=== PATIENT | female | born 1950 | race Caucasian/White ===

== ENCOUNTER → 2018-04-06 | Outpatient (CLI) | payer MEDICARE | END | disposition home or self-care (01) | LOC: KCIC CT 12:58 | DX: J44.9 Chronic obstructive pulmonary disease, unspecified (principal); R91.1 Solitary pulmonary nodule | CPT/HCPCS: 71250 ==

== ENCOUNTER → 2018-05-19 | Day surgery (SDC) | payer MEDICARE ==
[~2018-05-19] MED LIST: EPINEPHrine 1 MG/ML VIAL; LIDOCAINE 1% Multi-Dose 50 ML VIAL.; LIDOCAINE 1% PF 2 ML VIAL. ID; MORPHINE SULFATE 2 MG/ML DISP.SYRIN. IV; ONDANSETRON PF 4 MG/2 ML VIAL. IV; PROCHLORPERAZINE 10 MG/2 ML VIAL. IV; PROPOFOL 20 ML IV; fentaNYL PF VIAL 100 MCG/2 ML VIAL IV
[2018-05-19 09:28] LABS: ADD MAN DIFF? NO
[2018-05-19 09:33] LABS: BASO # 0.1 x10^3/uL (0.0-0.2); BASO % 1 % (0-3); EOS # 0.2 x10^3/uL (0.0-0.7); EOS % 2 % (0-3); HEMATOCRIT 41.9 % (36.0-47.0); HEMOGLOBIN 14.5 g/dL (12.0-15.5); LYMPH % 28 % (24-48); MEAN CORPUSCULAR HEMOGLOBIN 33 pg (25-35); MEAN CORPUSCULAR HGB CONC 35 g/dL (31-37); MEAN CORPUSCULAR VOLUME 95 fL (79-100); MONO # 0.5 x10^3/uL (0.0-1.1); MONO % 6 % (0-9); NEUT # 4.5 x10^3uL (1.8-7.7); NEUT % 63 % (31-73); PLATELET COUNT 238 x10^3/uL (140-400); RED BLOOD COUNT 4.39 x10^6/uL (3.50-5.40); RED CELL DISTRIBUTION WIDTH 12.8 % (11.5-14.5); WHITE BLOOD COUNT 7.2 x10^3/uL (4.0-11.0)
[2018-05-19] MEDS: ALBUTEROL SULFATE 2.5 MG/3 ML NEBU. IH (09:41)
[2018-05-19 09:43] LABS: PROTHROMBIN TIME PATIENT 12.3 SEC (11.7-14.0)
[2018-05-19] MEDS: IV RINGERS,LACTATED 1000ML 1,000 ML IV (09:44)
== END | disposition home or self-care (01) ==
LOC: SURG 08:58
DX: R91.8 Other nonspecific abnormal finding of lung field (principal); I10 Essential (primary) hypertension; J43.9 Emphysema, unspecified; Z90.49 Acquired absence of other specified parts of digestive tract; Z98.51 Tubal ligation status; Z98.890 Other specified postprocedural states; Z79.01 Long term (current) use of anticoagulants; F17.210 Nicotine dependence, cigarettes, uncomplicated; Z80.1 Family history of malignant neoplasm of trachea, bronchus and lung; Z82.49 Family history of ischemic heart disease and other diseases of the circulatory system
CPT/HCPCS: 31622; 31624; 31625; 36415; 85025; 85610; 87070; 87102; 87116; 87205; 88112; 94640; J0171; J2704; J7613

== ENCOUNTER → 2018-05-23 | Outpatient (CLI) | payer MEDICARE | END | disposition home or self-care (01) | LOC: KCIC US 08:53 | DX: R19.05 Periumbilic swelling, mass or lump (principal); R19.07 Generalized intra-abdominal and pelvic swelling, mass and lump | CPT/HCPCS: 76705 ==

== ENCOUNTER → 2018-06-16 | Outpatient (CLI) | payer MEDICARE ==
[2018-05-19 11:07] VITALS: BP 164/73
[~2018-06-16] MED LIST changes: -EPINEPHrine 1 MG/ML VIAL; -LIDOCAINE 1% Multi-Dose 50 ML VIAL.; -LIDOCAINE 1% PF 2 ML VIAL. ID; +LOSA25TA4 PO; -MORPHINE SULFATE 2 MG/ML DISP.SYRIN. IV; -ONDANSETRON PF 4 MG/2 ML VIAL. IV; +PROAIR HFA8.5 GM INH; -PROCHLORPERAZINE 10 MG/2 ML VIAL. IV; -PROPOFOL 20 ML IV; -fentaNYL PF VIAL 100 MCG/2 ML VIAL IV
--- NOTE | 2018-06-16 16:22 | RAD ---
CLINICAL HISTORY: Lung cancer INDICATION: Initial evaluation. COMPARISON: CT chest 04/06/2018 TECHNIQUE: Radiopharmaceutical Dose: 13 mCi F-18 FDG intravenous Blood glucose at time of study: 124 Images were obtained from the mid head to the mid thighs. A low dose, noncontrast CT study was performed for the purpose of attenuation correction and anatomic localization. FINDINGS: Head and Neck: No abnormal metabolic activity is seen within the head or neck. Chest: Within the left apex, in a region of patchy and reticular nodular opacities, SUV max measures 2.7. In the left suprahilar region there is an area of nodular prominence within SUV max of 9.8. This may represent a hilar lymph node or mass, not well delineated by noncontrast exams. Although comparison to prior CT is limited, this is stable to mildly more prominent morphologically. Abdomen and Pelvis: Physiologic GI and activity. The right kidney is small. Skeletal: No suspicious osseous metabolic activity is seen. IMPRESSION: 1. Left suprahilar fullness with increased metabolic activity with SUVmax measuring 9.8. This area was not well delineated on prior noncontrast CT. Given the increased metabolic activity and suspicion for lung cancer, this can be further assessed by bronchoscopy and possibly endobronchial biopsy. 2. Additional lung nodules, likely below threshold for evaluation by PET. 3. Patchy reticular nodular opacities in the left lung apex, with mild, near physiologic SUV max, possibly postinfectious.
== END | disposition home or self-care (01) ==
LOC: PETSC 11:01
PROVIDERS: ATTEND Radiology Radiation Oncology
DX: C34.92 Malignant neoplasm of unspecified part of left bronchus or lung (principal); I10 Essential (primary) hypertension; J44.9 Chronic obstructive pulmonary disease, unspecified; Z87.891 Personal history of nicotine dependence
CPT/HCPCS: 78815; A9552

== ENCOUNTER → 2018-10-20 | Outpatient (CLI) | payer MEDICARE ==
[2018-05-19 11:07] VITALS: BP 164/73
[~2018-10-20] MED LIST changes: +ALBU2.5V8 INH; +AMLO5TAB7 PO; -LOSA25TA4 PO; +LOSA25TA54 PO; -PROAIR HFA8.5 GM INH
--- NOTE | 2018-10-20 11:29 | RAD ---
CT CHEST WO CONTRAST Indication: [facility] CARCINOMA GARRETT S/P TREATMENT NO CONTRAST PREV SENT Exposure: One or more of the following individualized dose reduction techniques were utilized for this examination: 1. Automated exposure control 2. Adjustment of the mA and/or kV according to patient size 3. Use of iterative reconstruction technique. Comparison: April 06, 2018 Contrast: None FINDINGS: Vascular structures: Limited exam without contrast. Aorta is calcified, ascending aorta measures by 2.9 cm transverse, unchanged from similar prior slice. Lymph nodes:No significant enlargement Thyroid gland:Visualized aspect is unremarkable. Heart: Coronary artery calcifications Esophagus: Unremarkable Pleural spaces: No significant effusion Lungs: Emphysematous changes are again identified. Biapical opacities are stable. Subpleural nodule along the right upper lateral lung is unchanged, measuring 6 mm diameter. Linear nodular opacity in the lower lobe is unchanged. Previously seen nodular opacities in the left upper lobe have mostly resolved. Trachea and central airways: There is a small segment of density within left lower lobe bronchus, could represent a mucous plug. Spine: Degenerative spondylosis. Bones: No destructive process. Upper abdomen: Slices obtained through the upper most abdomen are limited by the noncontrast technique. Right kidney is small and atrophic. Density within the gallbladder compatible with a gallstone. Both of these findings are unchanged. Hypodense lesion of the liver, measures 8 mm, unchanged, too small to characterize but would most likely represent benign structure such as cyst. External Soft Tissue: No acute findings. Impression: 1. Previously seen left upper lobe nodular opacities have improved and mostly resolved. 2. Right lung subpleural nodule is stable. 3. Right lower lobe linear nodular opacity is stable. 4. Cholelithiasis. 5. Hypodense lesion of the liver, unchanged. Electronically signed by: Ariel Thompson MD (10/20/2018 11:24 AM) [id number]
== END | disposition home or self-care (01) ==
LOC: CT 09:39
PROVIDERS: ATTEND Radiology Radiation Oncology
DX: K80.20 Calculus of gallbladder without cholecystitis without obstruction (principal); K76.89 Other specified diseases of liver; R91.1 Solitary pulmonary nodule; M47.894 Other spondylosis, thoracic region; N26.1 Atrophy of kidney (terminal); I25.10 Atherosclerotic heart disease of native coronary artery without angina pectoris; I70.0 Atherosclerosis of aorta
CPT/HCPCS: 71250

== ENCOUNTER → 2019-01-25 | Outpatient (CLI) | payer OTHER ==
[2018-05-19 11:07] VITALS: BP 164/73
[~2019-01-25] MED LIST changes: +AMLO5TAB10 PO; -AMLO5TAB7 PO
--- NOTE | 2019-01-25 10:41 | RAD ---
CT of the chest without contrast, 01/25/2019: History: Follow-up lung cancer Noncontrast scans were obtained as requested. Comparison is made to CT images from a PET/CT exam of 06/16/2018 as well as a previous CT chest exam from 04/06/2018. The PET study demonstrated a hypermetabolic lesion in the left suprahilar region. This appears to have regressed, however, it is difficult to separate from underlying vascular structures on these noncontrast scans. There are extensive emphysematous changes in the lungs with scattered parenchymal scars. There is an unchanged elongated partially calcified density in the right lower lobe compatible with scarring. There are bilateral apical pleural-parenchymal opacities which are stable and probably represent scars. There was mild streaky/nodular infiltrate in the anterior aspect of the left apex on the 06/16/2018 images which has resolved. There is a new 8 mm faint groundglass opacity anteromedially in the left upper lobe as seen on axial image #25, of doubtful significance. There is moderate calcific plaquing of the thoracic aorta and its branches including the coronary arteries. There are calcified mediastinal and hilar lymph nodes. No mediastinal adenopathy is seen. There are scattered degenerative changes in the spine. No destructive bony lesion is identified. IMPRESSION: 1. Regression of the poorly defined left suprahilar nodule since 06/16/2018 compatible with a favorable response to therapy. 2. Emphysema with moderate bilateral pleural-parenchymal scarring. 3. New tiny nonspecific groundglass opacity anteriorly in the left upper lobe. PQRS Compliance Statement: One or more of the following individualized dose reduction techniques were utilized for this examination: 1. Automated exposure control 2. Adjustment of the mA and/or kV according to patient size 3. Use of iterative reconstruction technique
== END | disposition home or self-care (01) ==
LOC: CT 09:14
PROVIDERS: ATTEND Radiology Radiation Oncology
DX: C34.12 Malignant neoplasm of upper lobe, left bronchus or lung (principal); J43.9 Emphysema, unspecified; J98.4 Other disorders of lung
CPT/HCPCS: 71250

== ENCOUNTER → 2019-05-16 | Outpatient (CLI) | payer OTHER ==
[2018-05-19 11:07] VITALS: BP 164/73
[~2019-05-16] MED LIST changes: +HYDR-2761 PO
--- NOTE | 2019-05-16 08:09 | RAD ---
PQRS Compliance statement: One or more of the following individualized dose reduction techniques were utilized for this examination: 1. Automated exposure control. 2. Adjustment of the mA and/or kV according to patient size. 3. Use of iterative reconstruction technique. Indication:Lung cancer. Status post treatment. Follow-up. TECHNIQUE: CT chest without IV contrast with multiplanar reformats. COMPARISON: 01/25/2019. FINDINGS: Heart is normal in size. No pericardial or pleural effusion. Coronary artery calcifications. Scattered atherosclerotic plaque in the thoracic aorta. No enlarged axillary adenopathy. Calcified right hilar lymph nodes are seen. No enlarged mediastinal adenopathy. Evaluation of hilar lymphadenopathy is limited due to lack of IV contrast. No measurable left hilar mass seen. Moderate emphysema. Atelectasis in the right lung apex with small bulla. Stable dystrophic calcifications are seen in the right lower lobe. Stable low attenuating lesion in segment IVb measuring 8 mm seen on multiple previous CTs. Otherwise, noncontrast appearance of the liver, spleen, pancreas, adrenals and kidneys within normal limits. Significant atherosclerotic plaque seen at the origin of the celiac axis and SMA. No suspicious bony lesion. IMPRESSION: 1. No measurable left hilar mass. Continue surveillance recommended. 2. Moderate emphysema. 3. Stable segment IVb liver lesion seen on multiple previous CTs, indeterminate. Attention on follow-up. Electronically signed by: Asher Mcdaniel DO (05/16/2019 8:07 AM) [facility]
== END | disposition home or self-care (01) ==
LOC: CT 07:26
PROVIDERS: ATTEND Radiology Radiation Oncology
DX: C34.12 Malignant neoplasm of upper lobe, left bronchus or lung (principal); I25.10 Atherosclerotic heart disease of native coronary artery without angina pectoris; I70.0 Atherosclerosis of aorta; I89.8 Other specified noninfective disorders of lymphatic vessels and lymph nodes; J98.11 Atelectasis; J43.9 Emphysema, unspecified; K76.9 Liver disease, unspecified; I70.8 Atherosclerosis of other arteries
CPT/HCPCS: 71250